=== PATIENT | male | born 1955 | race Caucasian/White ===

== ENCOUNTER 2021-04-24 14:43 | Emergency (ER) | payer OTHER ==
[~2021-04-24] VITALS: Ht 172.7 cm; Wt 68.0 kg
[2021-04-24 15:58] LABS: HEMATOCRIT 46.6 % (39.0-50.0); IMMATURE GRANULOCYTES 0.2 % (0.0-5.0); MEAN CELL VOLUME 94.5 fL CALC (80.0-100.0); MEAN CORPUSCULAR HGB 30.4 pG CALC (26.0-32.0); MEAN CORPUSCULAR HGB CONC 32.2 g/dL CAL (32.0-36.0); NEUT# 4.63 thou/uL (1.82-7.42); RED BLOOD COUNT 4.93 mill/uL (4.70-6.10); RED CELL DISTRI WIDTH 13.8 % (11.5-15.5)
[2021-04-24 16:11] LABS: ALBUMIN 4.3 g/dL (3.2-5.0); ALKALINE PHOSPHATASE 96 u/l (38-126); ANION GAP 10 (6-22 (CALC)); BILIRUBIN, TOTAL 0.6 mg/dL (0.0-1.4); BUN 21 mg/dL (8-23); BUN/CREATININE RATIO 23 (12-20 (CALC)); CARBON DIOXIDE 27 mmol/l (22-30); CHLORIDE 106 mmol/l (95-108); CREATININE 0.9 mg/dL (0.7-1.3); GFR > 60 ML/MIN (>=60 (CALC)); GFR FOR AFR.AMER. > 60 ML/MIN (>=60 (CALC)); POTASSIUM 4.1 mmol/l (3.5-5.1); SGOT/AST 36 u/l (19-48); SODIUM 139 mmol/l (137-146)
[2021-04-24 21:09] LABS: ACT PARTIAL THROMBO TIME 24.7 SECONDS (20.0-32.5); INTERNATIONAL NORMALIZED RATIO 0.9 RATIO (0.7-1.3); PROTHROMBIN TIME 9.8 SECONDS (9.0-12.5)
[2021-04-24] MEDS ORDERED: ZPAK PO (22:26)
[2021-04-24 23:30] VITALS: BP 145/88
== END 2021-04-24 22:50 | DRG 179 ==
LOC: ED 14:43
PROVIDERS: Family Medicine
DX: U07.1 COVID-19 (principal); J40 Bronchitis, not specified as acute or chronic

== ENCOUNTER 2021-06-08 11:13 | Emergency (ER) | payer MEDICARE, MEDICAID ==
[~2021-06-08] VITALS: Ht 172.7 cm; Wt 63.5 kg
[~2021-06-08 11:13] MED LIST: ZPAK PO
[2021-06-08] MEDS ORDERED: MITIGARE0.6 MG PO ×2 (13:15→13:25)
[2021-06-08] MEDS ORDERED: MOTRIN400 MG/TAB PO ×2 (13:15→13:25)
[2021-06-08 13:25] VITALS: BP 150/93
== END 2021-06-08 13:25 | disposition home or self-care (01) ==
LOC: ED 11:13
DX: M10.041 Idiopathic gout, right hand (principal); I10 Essential (primary) hypertension; E78.00 Pure hypercholesterolemia, unspecified